=== PATIENT | male | born 1995 | race Caucasian/White ===

== ENCOUNTER 2019-02-05 13:39 | Emergency (ER) | payer SELFPAY ==
[~2019-02-05] VITALS: Ht 177.8 cm; Wt 68.0 kg
[~2019-02-05 13:39] MED LIST: AMOX50SU PO; CEPH500 PO; CODACEE120 PO; PRED10 PO; RANI150 PO
[2019-02-05] MEDS ORDERED: Zithromax250 MG PO (15:10)
== END 2019-02-05 15:14 | disposition home or self-care (01) ==
LOC: ER 13:39
DX: J02.9 Acute pharyngitis, unspecified (principal); Z88.0 Allergy status to penicillin
CPT/HCPCS: 36415; 86308; 87081; 87430; 99283

== ENCOUNTER 2021-04-07 07:42 | Emergency (ER) | payer OTHER ==
[~2021-04-07] VITALS: Ht 180.3 cm; Wt 72.6 kg
[~2021-04-07 07:42] MED LIST changes: +Zithromax250 MG PO
== END 2021-04-07 10:00 | disposition home or self-care (01) ==
LOC: ER 07:42
DX: M25.512 Pain in left shoulder (principal); Z88.0 Allergy status to penicillin; F17.200 Nicotine dependence, unspecified, uncomplicated
CPT/HCPCS: 73030; 96374; 99283-25; J1885